=== PATIENT | male | born 1975 | race Two or more races ===

== ENCOUNTER 2020-02-13 17:39 | Emergency (ER) | payer OTHER ==
[2020-02-13] MEDS ORDERED: LIDOCAINE 1% INJ-PF (10 MG/ML) 30 ML SDV INJ ONE (17:52)
--- NOTE | 2020-02-13 17:55 | ER Document Report ---
ED Medical Screen (RME) - General Chief Complaint: Hand Pain Stated Complaint: HAND LACERATION Time Seen by Provider: 02/13/20 17:42 Notes: Patient is a 44-year-old male who presents the emergency department with a laceration to his left hand at his medial posterior thumb. Patient was cut by a knife that had a hook on it at his work. This happened about an hour prior to arrival. Patient is able to move his finger. States that his last tetanus vaccine was 5 years ago. Exam: 3 cm laceration to left dorsal, proximal thumb. I have greeted and performed a rapid initial assessment of this patient. A comprehensive ED assessment and evaluation of the patient, analysis of test results and completion of medical decision making process will be conducted by an additional ED providers. Physical Exam - Vital signs Vitals: Temp Pulse Resp BP Pulse Ox 98.6 F 79 17 160/101 H 93 02/13/20 17:43 02/13/20 17:43 02/13/20 17:43 02/13/20 17:43 02/13/20 17:43 Course - Vital Signs Vital signs: Temp Pulse Resp BP Pulse Ox 98.6 F 79 17 160/101 H 93 02/13/20 17:43 02/13/20 17:43 02/13/20 17:43 02/13/20 17:43 02/13/20 17:43
--- NOTE | 2020-02-13 18:19 | RADIOLOGY REPORT (SQ) ---
EXAM DESCRIPTION: HAND LEFT 3 VIEWS IMAGES COMPLETED DATE/TIME: 02/13/2020 6:02 pm REASON FOR STUDY: hand laceration COMPARISON: None. EXAM PARAMETERS: NUMBER OF VIEWS: Three views. TECHNIQUE: AP, lateral and oblique radiographic images acquired of the left hand. LIMITATIONS: None. FINDINGS: MINERALIZATION: Normal. BONES: No acute fracture or dislocation. No worrisome bone lesions. JOINTS: No effusions. SOFT TISSUES: There appears to be a laceration near the base of the thumb. OTHER: No other significant finding. IMPRESSION: Laceration. No osseous abnormality. TECHNICAL DOCUMENTATION: JOB ID: [id number] 2010 [email or web address]- All Rights Reserved Reading location - IP/workstation name: [email or web address]
[2020-02-13] MEDS ORDERED: DIPH/PERTUSS(ACELL)/TETANUS VAC/PF 0.5 ML SYR (>=10YO) IM ONE (19:12)
--- NOTE | 2020-02-13 19:19 | ER Document Report ---
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 Patient denies any sensory or motor impairment. He takes no regular medications and has no known allergies. Last tetanus booster was about 5 years ago. - Related Data Allergies/Adverse Reactions: No Known Allergies Allergy (Verified 02/13/20 17:54) Past Medical History - General Information source: Patient - Social History Smoking Status: Never Smoker Family History: Reviewed & Not Pertinent Patient has suicidal ideation: No Patient has homicidal ideation: No Review of Systems - Review of Systems Notes: Constitutional: Negative for fever. HENT: Negative for sore throat. Eyes: Negative for visual changes. Cardiovascular: Negative for chest pain. Respiratory: Negative for shortness of breath. Gastrointestinal: Negative for abdominal pain, vomiting or diarrhea. Genitourinary: Negative for dysuria. Musculoskeletal: Negative for back pain. Skin: Negative for rash. Neurological: Negative for headaches, weakness or numbness. 10 point ROS negative except as marked above and in HPI. Physical Exam - Vital signs Vitals: Temp Pulse Resp BP Pulse Ox 98.6 F 79 17 160/101 H 93 02/13/20 17:43 02/13/20 17:43 02/13/20 17:43 02/13/20 17:43 02/13/20 17:43 - Notes Notes: GENERAL: Slender male male approximately stated age appearing in no acute distress. SKIN: Good turgor no rashes. HEAD: Normocephalic atraumatic. EYES: PERRLA. EOMI. Conjunctivae and sclerae clear. NECK: Supple. No masses or thyromegaly. No adenopathy. Carotids 2+ without bruits. No JVD. BACK: Symmetrical without tenderness. CHEST: Respirations unlabored. Breath sounds clear and symmetrical. HEART: Regular rhythm. No murmur gallop or rub. ABDOMEN: Soft nontender without masses, organomegaly or rebound. Bowel sounds normally active. No bruits. EXTREMITIES: 4.0 cm transverse laceration at the base of the left thumb dorsal surface. Minimal venous oozing. No gross contamination or foreign body appreciated. Tendons are visible but visually intact through full range of motion and distal motor and sensory exams are normal. Distal capillary refill is normal. No edema. No calf tenderness. Cap refill less than 1.5 seconds. Dorsalis pedis and posterior tibial pulses 3+ and symmetrical. NEUROLOGICAL: Alert and oriented x3. Nonfocal. PSYCHIATRIC: Appropriate affect. Course - Re-evaluation Re-evalutation: 02/13/20 19:18 X-ray was obtained and showed no obvious radiopaque foreign body. Patient received a tetanus booster. The wound was locally anesthetized with 5 cc of 1% plain lidocaine. Copious irrigation with 1 L normal saline. Sterile prep and drape. Closure of the wound was achieved without difficulty with sutures. - Vital Signs Vital signs: Temp Pulse Resp BP Pulse Ox 98.7 F 75 17 144/91 H 95 02/13/20 18:00 02/13/20 18:00 02/13/20 18:00 02/13/20 18:00 02/13/20 18:00 Procedures - Laceration/Wound Repair Left Thumb Wound length (cm): 4.0 Wound's Depth, Shape: Into muscle, Linear Laceration pre-procedure: Sterile PPE donned, Chloraprep applied, Sterile drapes applied, Shur-Clens applied Anesthetic type: 1% Lidocaine Volume Anesthetic (mLs): 5 Wound explored: Clean, No foreign body removed Irrigated w/ Saline (mLs): 1,000 Wound Repaired With: Sutures Suture Size/Type: 5:0, Ethilon Number of Sutures: 5 Layer Closure?: No Post-procedure wound care: Sterile dressing applied Post-procedure NV exam normal: Yes - Normal Complications: No Discharge - Discharge Clinical Impression: Laceration of left thumb without complication Qualifiers: Encounter type: initial encounter Qualified Code(s): S61.012A - Laceration without foreign body of left thumb without damage to nail, initial encounter Condition: Stable Disposition: HOME, SELF-CARE Instructions: Laceration Care ([facility]) Additional Instructions: Return here as needed for new or worsening symptoms. Avoid lifting more than 5 pounds with the left hand for the next 2 weeks. See your doctor or return here in approximately 10 days for removal of stitches. Tylenol as needed for pain Take prescribed antibiotic Prescriptions: Cephalexin Monohydrate [Keflex 500 mg Capsule] 500 mg PO Q6H 5 Days capsule Forms: Return to Work
[2020-02-13 19:52] VITALS: BP 154/95
== END 2020-02-13 20:04 | disposition home or self-care (01) ==
LOC: ER 17:39
DX: S61.012A Laceration without foreign body of left thumb without damage to nail, initial encounter (principal); W26.0XXA Contact with knife, initial encounter; Y99.0 Civilian activity done for income or pay; Z23 Encounter for immunization
CPT/HCPCS: 99283; 90471; 73130; 90715; 12002; J3490